=== PATIENT | female | born 1985 | race Caucasian/White ===

== ENCOUNTER 2016-10-23 06:00 | Inpatient (IN) ==
[2016-10-23] MEDS ORDERED: Naloxone 0.4 MG/ML INJ IVP PRN (06:36)
[2016-10-23] MEDS ORDERED: Ondansetron 4 MG/2 ML VIAL IVP PRN ×2 (06:36→12:00)
[2016-10-23] MEDS ORDERED: Famotidine 20 MG/2 ML VIAL IVP PRN (06:36)
[2016-10-23] MEDS ORDERED: Metoclopramide 10 MG/2 ML VIAL IVP PRN (06:36)
[2016-10-23] MEDS ORDERED: *HR* Nalbuphine 20 MG/ML AMPUL IVP PRN (06:41)
[2016-10-23] MEDS ORDERED: Oxytocin 20 units/ LR 1000 mL 20 UNIT/1,000 ML BAG IVC SCH (06:45)
[2016-10-23 06:51] LABS: Basophils # 0.1 K/mcL (0.0-0.2); Basophils % 0.7 %; Eosinophils # 0.1 K/mcL (0.0-0.6); Eosinophils % 0.4 %; Hematocrit 37.7 % (35.3-44.9); Hemoglobin 12.7 g/dL (11.5-15.4); Immature Granulocytes % 3.7 % (0-4); Lymphocytes # 2.2 K/mcL (0.6-4.6); Lymphocytes % 19.4 %; Mean Corpuscular HGB Conc 33.7 g/dL (31.6-35.5); Mean Corpuscular Hemoglobin 30.2 pg (28.0-33.3); Mean Corpuscular Volume 89.8 fL (83.0-100.0); Mean Platelet Volume 10.5 fL (9.4-12.4); Monocytes # 0.8 K/mcL (0.0-1.3); Monocytes % 7.4 %; Neutrophils # 7.7 K/mcL (1.6-8.9); Platelet Count 159 K/mcL (140-400); Red Cell Distribution Width 14.1 % (11.5-14.5); Segmented Neutrophils % 68.4 %
[2016-10-23] MEDS: Ringers Solution, Lactated 1,000 ML IVC SCH ×3 (07:07→13:57)
--- NOTE | 2016-10-23 08:08 | Anesthesia Evaluation PreOp ---
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 Other Medical History: GERD Anesthesia History: No Prior Anesthetic Complications, Past Anesthesia (wisdom teeth extraction, appendectomy) : Yes Alcohol Use: none Drug use: none Medications and Allergies Pnv95/Ferrous Fumarate/FA [ Vitamin Tablet] 1 each PO 10/23/16 [History] Allergies No Known Allergies Allergy (Verified 03/20/16 16:06) - Meds/Allergy Pre-op Review Medications Reviewed: Yes Allergies Reviewed: Yes Beta Blockers on Current Med List: No Anesthesia Results - Labs 10/23/16 06:20 Anesthesia Exam BP 124/72 P86 T98.0 R 16 Height: 5'7" Weight: 84kg NPO (# of Hours): 2hrs Pain Scale: 2 Pain Scale Used: Numeric (1 - 10) - HEENT Pupil (Motor): Pupils equal Mallampati: II Teeth: Normal Oral Opening: Greater than 3 - GEAR CODING MACHINE OPERATOR LOC: Oriented GEAR CODING MACHINE OPERATOR Motor: Normal RUE, Normal LUE, Normal RLE, Normal LLE, Normal Face GEAR CODING MACHINE OPERATOR Sensory: Normal: RUE, LUE, RLE, LLE, Face - Cardiac Rhythm: Regular Murmur: None JVD: No Carotid Bruit: No - Pulmonary Breath Sounds: bilateral Clear Respiratory Effort: Symmetrical Anesthesia Assess/Plan ASA Score: 2 Modified [place] Scale for Level of Consciousness: Cooperative, oriented, and tranquil Anesthetic Plan: Regional Autologous Blood: No Monitoring Plan: Standard Monitors Recovery Plan: Other
--- NOTE | 2016-10-23 08:51 | OB/GYN History & Physical ---
Date of Encounter: 10/23/16 Time of Encounter: 08:58 Assessment and Plan (1) 40 weeks gestation of Current visit: Yes Status: Acute (2) Elective induction of labor planned Current visit: Yes Status: Acute History of Present Illness HPI: Ms. De La Cruz is a 31 year old female with an EDC of 10/23/16 at 40 weeks for elective induction of labor. PN visit in office yesterday noted cervical dilation of 4 cm. PN course uncomplicated. A Positive, Rubella immune, GBS negative. Past Med Surg Social Fam HX - Past Medical History Medical history: no medical history Psychiatric history: no psych history - Past Surgical History Surgical History: appendectomy, vascular surgery - Social History Smoking Status: Never smoker Smokeless Tobacco Status: No Alcohol use: none Drug use: none - Family History Father Adopted: No Hx Family Cardiac Disorders: No Hx Family Respiratory Disorders: No Hx Family Cancer: No Hx Family GI Disorders: No Hx Family Genitourinary Disorders: No Hx Family Endocrine Disorder: No Hx Family Musculoskeletal Disorders: No Hx Family Neuromuscular Disorders: No Hx Family Neurologic Disorders: Yes (parkinson's disease) Hx Family HEENT Disorders: No Hx Family Autoimmune Disorders: No Hx Family Reproductive Disorders: No Hx Family Psychosocial Disorders: No Hx Family Medical Disorders: No Obstetrical History - Pregnancies : 2 Medications and Allergies Pnv95/Ferrous Fumarate/FA [ Vitamin Tablet] 1 each PO 10/23/16 [History] Allergies No Known Allergies Allergy (Verified 03/20/16 16:06) Exam - Constitutional Constitutional: well developed, well nourished, no acute distress - HEENT HEENT: Normocephaly - Neck Neck exam: normal inspection - Lungs Respiratory exam: CTAB - Cardiovascular Cardiovascular exam: RRR - Abdomen Abdomen: Present: gravid, non tender - Extremities Extremities exam: normal inspection - Cervix Dilation: 4 Effacement: 80 Station: 0 Results Result Diagrams: 10/23/16 06:20 Abnormal lab results WBC 11.2 K/mcL (4.3-11.1) H 10/23/16 06:20 All other labs normal.
--- NOTE | 2016-10-23 11:36 | OB Labor Progress Note ---
Date of Encounter: 10/23/16 Time of Encounter: 11:35 Labor Progress Note - Subjective Subjective: Pt. reports contractions more uncomfortable - Cervix Cervix: 4-5/80%/VTX/0 - Heart Tones Heart Tones: Reactive FHR - [place]: Contractions every 2-3 minutes. Pitocin at 8 mU/min - Interventions Interventions: Will request epidural then consider AROM
[2016-10-23] MEDS ORDERED: *HR* FentaNYL (PF) 100 MCG/2 ML VIAL ONE (11:55)
[2016-10-23] MEDS ORDERED: Bupivacaine-MPF 0.25% 10 ML VIAL ONE (11:56)
[2016-10-23] MEDS ORDERED: Epidural Premix (fent/bupiv) 110 ML EP ONE (11:56)
[2016-10-23] MEDS ORDERED: *HR* FentaNYL (PF) 100 MCG/2 ML VIAL EP ONE (12:00)
[2016-10-23] MEDS ORDERED: Bupivacaine-MPF 0.25% 10 ML VIAL EP ONE (12:00)
[2016-10-23] MEDS ORDERED: Epidural Premix (fent/bupiv) 110 ML EP SCH (12:00)
[2016-10-23] MEDS ORDERED: EPHEDrine 50 MG/ML VIAL IVP PRN (12:00)
--- NOTE | 2016-10-23 12:42 | Anesthesia Procedures ---
Date of Encounter: 10/23/16 Time of Encounter: 12:03 Procedures: Anesthesia - Epidural/Spinal Patient ID/Chart reviewed: Yes Patient examined: Yes OB Eval: Gestational age: 40 OB Eval: : 2 OB Eval: Hx Para: 1 OB Eval: Dilated at (cm): 5 OB Eval: Contractions: Non-stressed pattern Consent Obtained: Yes Supplemental Oxygen: None/Room Air Site Prep: Aseptic Technique, Sterile prep and drape, Povidone-Iodine 1% Patient position: upright Local Anesthetic: Lidocaine 1% Amount of Local Anesthetic used: 3 Touhy Needle Gauge: 18 Touhy Needle Depth (cm): 6 Catheter Depth at Skin (cm): 14 Test Dose (1.5% Lido + Epi): Volume given (mls): 3 Test Dose Result: Negative Loading Dose: 0.25% Marcaine (mls): 10 Loading Dose: Fentanyl (mcg): 100 Loading Dose Administered: Thru Catheter Infusion Med: 0.125% Bupivacaine w/ 2 mcg/ml Fentanyl Infusion Rate (mls/hr): [address]: Tegaderm, Tape Interspace Used: L4-L5 Loss of Resistance (HOLLY): Yes Blood: No CSF: No Paresthesia: No Procedure: MITCH placed in upright position 1st pass without any immediate noted complications. VSS and FHT stable throughout. Vitals + FHT's: 1203 BP 164/86 R18 P 89 1230 BP 121/54 P 64 R 16 FHT 130s throughout.
--- NOTE | 2016-10-23 13:28 | OB Labor Progress Note ---
Date of Encounter: 10/23/16 Time of Encounter: 13:26 Labor Progress Note - Subjective Subjective: Pt. comfortable with epidural - Cervix Cervix: 7/100%/VTX/0 - Heart Tones Heart Tones: Reactive FHR - [place]: Contractions every 2-3 minutes - Interventions Interventions: AROM, moderate amount, lightly MSAF
[2016-10-23] MEDS: Oxytocin 20 units/ LR 1000 mL 20 UNIT/1,000 ML BAG IVC SCH ×2 (14:56→16:16)
--- NOTE | 2016-10-23 15:30 | OB/GYN Procedure Note ---
Delivery - Delivery Date: 10/23/16 Provider: Yvette Andrade Intrapartum events: meconium Delivery induction: oxytocin Delivery augmentation: rupture of membranes Delivery monitor: external FHT, external uterine Anesthesia: epidural Estimated Blood Loss: 400 - Infant (s) A Infant Delivery Date: 10/23/16 Infant Delivery Time: 14:51 Presentation: vertex Position: MILI Route of delivery: Gender: Female Viability: Viable Pounds: 8 Ounces: 13 Weight Gram: 4 kg at 1 minute: 8 at 5 mins: 9 Shoulder Dystocia: not encountered Placenta: spontaneous Cord: 3 umbilical vessels - Repair Episiotomy: none Laceration Description: Periurethral, Perineal - 2nd Degree, Labial - Complications Delivery complications: none - Disposition Mom disposition: stable in LDR [place] disposition: stable in LDR - Comments Comments: Patient progressed to complete dilatation and had a spontaneous vaginal delivery of a viable female . scores were 8 and 9 at one and 5 minutes respectively, and the infant weighed 8 lbs. 13 oz. The placenta delivered spontaneously and appeared to be intact. A periurethral and left labial laceration were closed with 4-0 Vicryl suture, a second-degree perineal laceration was repaired with 3-0 Vicryl suture. All sponge needle and is counts reported as correct. Estimated blood loss 400 mL's. No shoulder dystocia was encountered, no nuchal cord was present.
[2016-10-23] MEDS ORDERED: *HR* Acetaminophen w/Cod 300-30 mg 1 TAB TABLET PO PRN ×2 (16:04→16:19)
[2016-10-23] MEDS ORDERED: Acetaminophen 325 MG TABLET PO PRN (16:04)
[2016-10-23] MEDS: Ibuprofen 600 MG TABLET PO PRN (20:11)
[2016-10-24 03:29] LABS: Basophils % 0.3 %; Eosinophils % 0.2 %; Hematocrit 32.2 % (35.3-44.9); Immature Granulocytes % 3.3 % (0-4); Lymphocytes # 1.8 K/mcL (0.6-4.6); Lymphocytes % 12.3 %; Mean Corpuscular HGB Conc 33.2 g/dL (31.6-35.5); Mean Corpuscular Hemoglobin 30.1 pg (28.0-33.3); Mean Corpuscular Volume 90.4 fL (83.0-100.0); Mean Platelet Volume 10.3 fL (9.4-12.4); Monocytes # 1.2 K/mcL (0.0-1.3); Monocytes % 8.1 %; Neutrophils # 11.1 K/mcL (1.6-8.9); Platelet Count 151 K/mcL (140-400); Red Blood Count 3.56 M/mcL (3.82-4.97); Red Cell Distribution Width 13.9 % (11.5-14.5); Segmented Neutrophils % 75.8 %
[2016-10-24 03:34] LABS: Hemoglobin 10.7 g/dL (11.5-15.4)
[2016-10-24] MEDS: Ibuprofen 600 MG TABLET PO PRN ×2 (05:48→14:31)
[2016-10-24 07:54] VITALS: BP 109/69
--- NOTE | 2016-10-24 08:58 | Discharge Summary ---
Date of Encounter: 10/24/16 Time of Encounter: 08:55 - Discharge Diagnosis (1) Vaginal delivery Priority: Primary Status: Acute Comments: Patient doing well day 1. Pain is well controlled Denies difficulty urinating and is passing flatus Lochia is light without clots Patient is Discharge home today (2) Breast feeding status of mother Priority: Secondary Status: Acute Comments: is going well. Rx given for pump - Discharge Medications Prescriptions: Ibuprofen [Motrin] 600 mg PO Q6HR PRN #60 tablet PRN Reason: Cramping Breast Pump [BREAST PUMP] 1 each .ROUTE AD #1 each Ferrous Sulfate 325 mg PO DAILY #60 tablet Home Medications: Pnv95/Ferrous Fumarate/FA [ Vitamin Tablet] 1 each PO 10/23/16 [History] Benzocaine/Menthol [place] [Dermoplast [place]] 1 appl TP QID PRN #0 aerosol [Rx] Breast Pump [BREAST PUMP] 1 each .ROUTE AD #1 each 10/24/16 [Rx] Docusate [Colace] 100 mg PO BID capsule 10/24/16 [Rx] Ferrous Sulfate 325 mg PO DAILY #60 tablet 10/24/16 [Rx] Hydrocortisone/Pramoxine [Epifoam] 0.5 gm TP TID PRN #0 foam 10/24/16 [Rx] Ibuprofen [Motrin] 600 mg PO Q6HR PRN #60 tablet 10/24/16 [Rx] Vit/FA 1 each PO DAILY tablet 10/24/16 [Rx] Allergies/Adverse Reactions: Allergies No Known Allergies Allergy (Verified 03/20/16 16:06) Data Procedures and tests throughout hospitalization: Laboratory Tests 10/23/16 10/24/16 06:20 03:19 WBC 11.2 H 14.7 H RBC 4.20 3.56 L Hgb 12.7 10.7 L D Hct 37.7 32.2 L MCV 89.8 90.4 MCH 30.2 30.1 MCHC 33.7 33.2 RDW 14.1 13.9 Plt Count 159 151 MPV 10.5 10.3 Immature Gran % 3.7 3.3 Seg Neutrophils % 68.4 75.8 Lymphocytes % 19.4 12.3 Monocytes % 7.4 8.1 Eosinophils % 0.4 0.2 Basophils % 0.7 0.3 Neutrophils # 7.7 11.1 H Lymphocytes # 2.2 1.8 Monocytes # 0.8 1.2 Eosinophils # 0.1 0.0 Basophils # 0.1 0.0 Labs on day of discharge: Labs from last 24 hours 10/24/16 03:19 WBC 14.7 H RBC 3.56 L Hgb 10.7 L D Hct 32.2 L MCV 90.4 MCH 30.1 MCHC 33.2 RDW 13.9 Plt Count 151 MPV 10.3 Immature Gran % 3.3 Seg Neutrophils % 75.8 Lymphocytes % 12.3 Monocytes % 8.1 Eosinophils % 0.2 Basophils % 0.3 Neutrophils # 11.1 H Lymphocytes # 1.8 Monocytes # 1.2 Eosinophils # 0.0 Basophils # 0.0 Date of admission: 10/23/16 06:05 Primary care physician: PCP KATELYNN Consults: 10/23/16 16:04 Consult to Kiln Puller [CONS] Routine Comment: Vaginal delivery, consult needed Discharging clinician: Karen Sher Anticipated date of discharge: 10/24/16 - Patient Status Disposition: Home, Self-Care Condition: Good Functional capacity at discharge: independent ambulation Overall status at discharge: patient is back to baseline - Discharge Instructions Follow Up With: NO,PCP [Primary Care Provider] - Yvette Andrade DO [Partnered Physician] - - Diet and Activity Activity: increase activity as tolerated Diet: regular diet Hospital Course Reason for admission: IUP at term Delivery: Episiotomy: none Laceration: 2nd degree Other procedures: none complications: none Discharge diagnosis: IUP at term delivered [place] baby: female Time Attestation: Total time spent providing and/or coordinating discharge services: Time Spent: Less than 30 minutes Exam - Constitutional Vitals: Temp Pulse Resp BP Pulse Ox 98.3 F 81 16 109/69 98 10/24/16 07:30 10/24/16 07:30 10/24/16 07:30 10/24/16 07:30 10/24/16 04:50 General appearance IM: A&O X 3 - Respiratory Respiratory exam: Present: CTAB - Cardiovascular Cardiovascular exam IM: Present: RRR, +S1, +S2 - GI/Abdominal GI/Abdominal exam IM: normal bowel sounds, soft - Rectal Rectal exam: deferred - Uterine Tone: Firm Uterus Position: At Umbilicus, Midline - Extremities Exam Extremities exam IM: Present: normal capillary refill, normal inspection - Neurological Exam Neurological exam: alert, oriented X3
[2016-10-24] MEDS ORDERED: Prenatal Vit/FA 1 EACH TABLET PO SCH (09:00)
[2016-10-24] MEDS ORDERED: Benzocaine/Menthol 56 GM AEROSOL SPRAY TP PRN (09:00)
== END 2016-10-24 15:34 | disposition home or self-care (01) | DRG 775 ==
LOC: 1NENULAB 06:05 → 1NENUOBS 16:50